=== PATIENT | male | born 1980 | race Caucasian/White ===

== ENCOUNTER → 2018-10-11 10:18 | Outpatient (CLI) | payer OTHER, SELFPAY ==
[2018-10-11 12:56] LABS: Cholesterol 162 mg/dL (200); Creatinine, Serum 1.28 mg/dL (0.70-1.30); EST Glomerular Filtration Rate 67 mL/min (>60); Est Glom Filt Rate - Afr Amer 81 mL/min (>60); High Density Lipoprotein 42 mg/dL; Triglycerides 139 mg/dL; Very Low Density Lipoprotein 28 mg/dL (5-40)
== END ==
PROVIDERS: Family Provider Family Medicine; PCP Family Medicine; Referring Provider Family Medicine; Visit Provider Family Medicine
DX: Z00.00 Encounter for general adult medical examination without abnormal findings (principal)
CPT/HCPCS: 36415; 80061; 82565

== ENCOUNTER 2021-07-14 07:30 | Outpatient (RCR) | payer OTHER, SELFPAY ==
--- NOTE | 2021-07-09 08:22 | HP.OTEVAL ---
Patient's Visit Information CELENA PUENTE is a 40 year old M, referred to Occupational Therapy by Dr. 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 Date of Evaluation: 07/08/21 Occupational Therapist: Emmy Lyle, REIDR/José Miguel, CHT - Subjective pt. is a 40 y/o male broke scaphoid 3 years ago, in month of April started push ups, middle of wrist starting to hurt, went for xray and mri, resulted in arthritis inflamed ligaments, received prednisone now on meloxicam and feels better. He has pain through wrist. 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 He would like to return to [facility]. - ADLs Comments: Pt. reports this has not interfered with ADL's. Golfs. Pushing increases pain. R handed. 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 - Pain Right Hand 0 Pain Intensity Range: 8 - ROM Wrist: L 60/110 R 55/90 ROM Comments: pt. demo with hypermobility of L wrist - Strength Dip Guider Stoves: L 110# R 100# Lateral Pinch: L 26# R 26# Tripod Pinch: L 18# R 26# Tip-to-Tip Pinch: L 10# R R 20# - Sensation Sensation Comments: pt. reported no deficit with sensation - Quick DASH-Disab of Arm,Shoulder& Hand Quick DASH Score: 0 - Goals Goal:: Pt. to increase R production control specialist strength from 100# to 110# for independence with IADL by dc. Goal:: Pt. to increase B wrist stabilization to prevent further injuries for functional IADL and work tasks by dc. Goal:: Pt. to verbalize 2 wrist joint protection techniques by dc. - Rehabilitation General Assessment: Pt. 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 No surgery, currently taking steroid to reduce inflammation. (Per results of MRI- scapholunate ligament fissuring/ low-grade partial thickness tearing, degenerative signal at the triangular fibrocartilage without tearing or fluid perforation, mild tenosynovitis of flexor/extensor tendons at the carpal tunnel & Tammy's tubercle.) Educated pt. on what to expect with healing, OT services, and HEP. Pt. verbalized understanding. He has mild deficits with R production control specialist strength and wrist ROM. Pt. would benefit from skilled OT services 1-2x a week for 6 weeks to return strength in R wrist and ROM for IADL tasks. Pt. demo'd understanding & agreeable to POC. Therapy session was directly supervised and doc. reviewed and approved by Emmy Lyle OTR/L,CHT. Rehabilitation Potential: Excellent - Anticipated Interventions A/AAROM/PROM, Strengthening, Education re Diagnosis, Home Program - Visit Plan Frequency: 1-2x /Week Duration: 6 Weeks General Plan: wrist stabilization exercises. (can use thera bar, marble maze, stabilizing pole). scaphoid lunate partial tear guideline. TEXT: Thank you for the opportunity to evaluate your patient. For Medicare and Medicare HMO plans, please review the plan of care and approve it. It will need to be FAXED BACK to us at [phone] for Medicare purposes. Please let me know if there are questions or concerns regarding this plan of care. Physician Signature: Date:
--- NOTE | 2021-11-13 08:08 | HP.OT.NRP ---
CELENA PUENTE was seen in my office for initial evaluation on 07/08/21. The following Plan of Care was established for this patient: Initial Frequency: 1-2x /Week Initial Duration: 6 Weeks Plan: wrist stabilization exercises Anticipated Interventions: A/AAROM/PROM, Strengthening, Education re Diagnosis, Home Program This patient was last seen in our office 07/14/21. Pertinent comments regarding their Occupational therapy will appear below: pt seen for 2 OT visits only- pt did not return or schedule further apts. due to time lapse in services pt d/c. At this point I will be discontinuing this patient from occupational therapy. I would be happy to see this patient again in the future if found appropriate by the physician. Thank you! Emmy Lyle, OTR/L, CHT
== END 2021-07-14 19:00 | disposition home or self-care (01) ==
LOC: OT 07:30
PROVIDERS: PCP Family Medicine; Referring Provider Family Medicine; Visit Provider Family Medicine
DX: S63.591D Other specified sprain of right wrist, subsequent encounter (principal); X58.XXXD Exposure to other specified factors, subsequent encounter; S63 Dislocation and sprain of joints and ligaments at wrist and hand level
CPT/HCPCS: 97110; 97165

== ENCOUNTER 2022-01-01 08:30 | Outpatient (RCR) | payer SELFPAY | END 2022-01-01 19:00 | disposition home or self-care (01) | LOC: PT 08:30 | PROVIDERS: PCP Family Medicine | DX: R69 Illness, unspecified (principal) ==

== ENCOUNTER 2022-06-07 11:55 | Outpatient (RCR) | payer SELFPAY | END 2022-06-07 19:00 | disposition home or self-care (01) | LOC: PT 11:55 | PROVIDERS: PCP Family Medicine | DX: R69 Illness, unspecified (principal) ==

== ENCOUNTER 2023-09-24 13:07 | Emergency (ER) | payer OTHER, SELFPAY ==
[2023-09-24 13:07] VITALS: BP 139/93; PULSE 67; RESP 20; TEMP 36.4; O2SAT 97
--- NOTE | 2023-09-24 13:56 | EX.ED.DYSGE1 ---
HPI History of Present Illness Chief Complaint: Allergic Reaction Detail of Chief Complaint: Generalized allergic reaction after an insect sting to his left forearm. Informant: patient and spouse/S.O. Onset/Context/Timing Onset: Today and Hours Context: Sudden Onset Timing: Continuous Current Severity: Moderate Maximum Severity: Moderate Narrative Narrative: Healthy 42-year-old male history of depression. Was stung on his left forearm with some type of insect earlier today. Occurred around noon. He started getting swelling of his eyelids minimally of his lips and hives and is axilla bilaterally. Also some swelling of his left arm. No prior history of any significant allergic reaction. gave him Benadryl at home 50 mg but his symptoms have not resolved. He denies any trouble breathing or swallowing. It has been about 2 hours. Prior similar symptoms: No Recent Illness/Hospitalization: No PFSH PFSH Medical History no medical history Home Medications ?Medication ?Instructions ?Recorded ?Last Taken ?Type epinephrine 0.3 mg/0.3 mL 0.3 mg (0.3 mL) IM Q10M PRN PRN 09/24/23 Unknown Rx injection, auto-injector anaphylaxis #2 ea prednisone 20 mg tablet 60 mg (3 x 20 mg) PO DAILY #6 09/24/23 Unknown Rx TABLETS Allergy/AdvReac Type Severity Reaction Status Date / Time No Known Allergies Allergy Verified 09/24/23 13:08 Family History no significant family his Surgical History no surgical history Social History Smoking Status: Never smoker ROS ROS ED ROS Narrative No recent illness. Constitutional Constitutional ED: Denies chills or fever(s) Eyes Eyes: Denies blurry vision ENT ENT ED: Denies ear pain Cardiovascular Cardiovascular: Denies chest pain Respiratory/Chest Respiratory/Chest: Denies cough or dyspnea Gastrointestinal Gastrointestinal: Denies abdominal pain Genitourinary Genitourinary ED: Denies dysuria or hematuria Musculoskeletal Musculoskeletal: Denies arthralgias Integumentary Reports other Details: Hives. ; Denies abscess or Abrasions Neurologic Neurologic: Denies headache(s) Psychiatric Psychiatric: Denies anxiety Endocrine Endocrinology: Denies cold intolerance Hematologic/Lymphatic Hematologic/Lymphatic: Reports none Allergic/Immunologic Allergic/Immunologic ED: Denies mouth swelling, tongue swelling or urticaria EXAM Physical Exam Narrative Exam Narrative: (42-year-old male. Vital signs stable afebrile. H EENT exam he is yet mild swelling of both upper eyelids. He can open close his eyes on difficulty. He has no facial swelling. Is minimal swelling of his lips. None of his tongue or posterior pharynx. No trouble swallowing or breathing. No stridor or drooling. Neck nontender no lymphadenopathy. Lungs clear to auscultation bilaterally. Heart regular rhythm rate about 70 no murmur. Abdomen soft nontender. Moving all 4 extremities. He has hives in both axilla. Is mild swelling to his left arm with the insect sting of his proximal lateral left forearm. On the palmar side. No stinger in place at this time. Extremities are neurovascularly intact. He is awake and alert. Const Vital Signs: 09/24/23 13:07 Temperature 97.5 F L Temperature Source Temporal Pulse Rate 67 Respiratory Rate 20 H Blood Pressure 139/93 H Blood Pressure Mean 108 Pulse Ox 97 Oxygen Delivery Method Room Air Positive well nourished and well developed; Negative for cachectic, contractures or unkempt General Appearance ED: well developed and NAD; Negative for unkempt, cachectic, contractures, cyanotic, diaphoretic or pallor Nutritional Appearance: Negative for cachectic HEENT Reports moist mucous membranes Negative for trauma or tenderness Eyes PERRL and EOMs intact bilaterally General Eye ED: Negative for pale conjunctiva or scleral icterus Neck no lymphadenopathy and no JVD Chest Wall inspection of chest normal and palpation of chest normal Resp normal respiratory effort and clear to auscultation bilaterally Effort and Inspection: Negative for retractions Auscultation: Negative for rales, rhonchi, wheezes or diminished lung sounds Cardio regular rate, regular rhythm, S1 normal heart sound, S2 normal heart sound and no murmurs Palpation: Negative for palpable S3 or palpable S4 Rate: Negative for bradycardia or tachycardic Rhythm: Negative for abnormal rhythm GI normal to inspection, nondistended, normoactive bowel sounds, non-tender, non-distended and no masses Auscultation: normoactive bowel sounds Palpation: soft; Negative for tender Back/Spine no CVA tenderness General Back: Negative for CVA tenderness Cervical Spine: Negative for cervical spine tenderness Thoracic Spine / Upper Back: Negative for thoracic spinal tenderness or paraspinal muscle tenderness Lumbar Spine / Lower Back: Negative for lumbar spinal tenderness Extremity Negative for normal to inspection Extremity Narrative: Eyes. Left forearm swelling. Hives in both axilla. Consistent with allergic reaction. Insect sting but no stinger in place. General Extremety ED: Yes edema General Extremity: edema Neuro oriented x3 and CN's II-XII intact bilaterally Sensorium / Orientation: alert; Negative for orientation impaired, lethargic or stuporous Motor Exam: strength 5/5 throughout Psych mental status grossly normal Appearance: Negative for unkempt Attitude: No agitated Mood & Affect: Negative for anxious or tearful Skin No no rashes or lesions noted, no wounds and skin turgor normal Skin Narrative: Generalized allergic reaction with hives and swelling. General Skin Exam: elasticity normal; Negative for jaundice or pallor MDM MDM MDM Narrative Medical decision making narrative: 42-year-old male with generalized allergic reaction. Will be given IV Solu-Medrol and p.o. Pepcid. He already took 50 mg of Benadryl at home. He will be observed and discharged home. Discharge Plan Triage Chief Complaint: Allergic Reaction ED Provider: Michael Flores Dx/Rx/DC Orders Clinical Impression: Allergic reaction, Insect sting, Hives Prescriptions: New epinephrine 0.3 mg/0.3 mL auto-injector 0.3 mg IM Q10M PRN PRN (Reason: anaphylaxis) Qty: 2 0RF Rx Instructions: for 2 doses prednisone 20 mg tablet 60 mg PO DAILY Qty: 6 0RF Primary Care Provider: Aaron Osullivan Referrals: Aaron Osullivan MD [Primary Care Provider] - As Needed Activity Restrictions/Additional Instructions: Continue Benadryl as needed for itching and the hives. If you are still having a lot of of hives you can use the prednisone tomorrow and the next day. 60 mg/day. If you are feeling a lot better and it is resolving it will need to use at all. I also wrote you for an EpiPen. You do not need that now but if you ever get bit or stung by a insect and you have a severe reaction we start having trouble breathing or feel like you might pass out you can inject that in your thigh. Print Language: Com[place]an Disposition Disposition: Home, Self Care
[2023-09-24 14:36] VITALS: BP 139/93; PULSE 67; RESP 16; TEMP 36.4; O2SAT 99
== END 2023-09-24 14:41 | disposition home or self-care (01) ==
PROVIDERS: Emergency Provider Emergency Medicine; PCP Family Medicine; Visit Provider Emergency Medicine
DX: L50.9 Urticaria, unspecified (principal); T78.49XA Other allergy, initial encounter
CPT/HCPCS: 96374; 99282; A4216

== ENCOUNTER → 2024-04-16 | Outpatient (CLI) | payer OTHER, SELFPAY ==
[2024-04-16 16:07] LABS: Anion Gap 10 (5-15); BUN 19 mg/dL (4-19); BUN/Creat Ratio 13.6 RATIO (10-20); Calcium,Total 9.5 mg/dL (7.6-11.0); Carbon Dioxide 25.6 mmol/L (21.0-32.0); Chloride 103 mmol/L (98-108); Creatinine, Serum 1.41 mg/dL (0.70-1.20); EST Glomerular Filtration Rate 63 (>60); Glucose 93 mg/dL (70-99); Potassium 4.7 mmol/L (3.3-5.1); Sodium Level 138 mmol/L (133-145)
== END | disposition home or self-care (01) ==
PROVIDERS: PCP Family Medicine
DX: R35.0 Frequency of micturition (principal)
CPT/HCPCS: 36415; 80048; 84153; 87086; 87491; 87591; G0103